=== PATIENT | male | born 1985 | race Caucasian/White ===

== ENCOUNTER 2017-10-10 06:04 | Emergency (ER) | payer OTHER ==
[~2017-10-10] VITALS: Ht 185.4 cm; Wt 81.6 kg
[~2017-10-10 06:04] MED LIST: NORCO 325 MG-51 TAB PO; TOBREX OPHTH S2.5 ML OPH
[2017-10-10] MEDS ORDERED: Motrin,Rufen800 MG PO (06:54)
== END 2017-10-10 07:06 | disposition home or self-care (01) ==
LOC: ED 06:04
DX: S92.421A Displaced fracture of distal phalanx of right great toe, initial encounter for closed fracture (principal); Z88.1 Allergy status to other antibiotic agents; W20.8XXA Other cause of strike by thrown, projected or falling object, initial encounter; Y93.89 Activity, other specified; Y92.69 Other specified industrial and construction area as the place of occurrence of the external cause; Y99.9 Unspecified external cause status